=== PATIENT | male | born 1975 | race American Indian/Alaskan Native ===

== ENCOUNTER 2018-06-07 18:09 | Emergency (ER) | payer BC, OTHER ==
[2018-06-07 18:17] VITALS: BP 133/85
[2018-06-07] MEDS ORDERED: NORCO 5/325 ONE (20:59)
[2018-06-07] MEDS ORDERED: BOOSTRIX IM ONE ×2 (21:00→21:02)
[2018-06-07] MEDS ORDERED: NORCO 5/325 PO ONE (21:02)
--- NOTE | 2018-06-07 22:10 | Emergency Department Report ---
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 denies: loss of feeling/numbness, suspect foreign body present, unable to move injured part, weakness followed by dizziness, nausea/vomiting, fever - Related Data Previous Rx's Medication Instructions Recorded Last Taken Type Azithromycin [Zithromax] 500 mg PO QDAY #3 tablet 08/26/13 Unknown Rx HYDROcodone/APAP 5-325 [Keene 1 each PO Q6HR PRN #20 tablet 08/26/13 Unknown Rx 5/325 mg] Cephalexin [Keflex] 500 mg PO Q8HR #30 cap 06/07/18 Unknown Rx traMADol [Ultram] 50 mg PO Q8HR PRN #12 tablet 06/07/18 Unknown Rx Allergies Allergy/AdvReac Type Severity Reaction Status Date / Time No Known Allergies Allergy Verified 06/07/18 18:15 ED Review of Systems ROS: Stated complaint: FINGER INJURY Other details as noted in HPI Constitutional: denies: chills, fever Eyes: denies: eye pain, eye discharge, vision change ENT: denies: ear pain, throat pain Respiratory: denies: cough, shortness of breath, wheezing Cardiovascular: denies: chest pain, palpitations Endocrine: no symptoms reported Gastrointestinal: denies: abdominal pain, nausea, diarrhea Genitourinary: denies: urgency, dysuria Musculoskeletal: denies: back pain, joint swelling, arthralgia Skin: other (left middl finger laceration ) Neurological: denies: headache, weakness, paresthesias Psychiatric: denies: anxiety, depression Hematological/Lymphatic: denies: easy bleeding, easy bruising ED Past Medical Hx - Past Medical History Previous Medical History?: No - Surgical History Past Surgical History?: No - Social History Smoking Status: Never Smoker Substance Use Type: Alcohol, Marijuana - Medications Home Medications: Home Medications Medication Instructions Recorded Confirmed Last Taken Type Azithromycin [Zithromax] 500 mg PO QDAY #3 tablet 08/26/13 Unknown Rx HYDROcodone/APAP 5-325 [Keene 1 each PO Q6HR PRN #20 tablet 08/26/13 Unknown Rx 5/325 mg] Cephalexin [Keflex] 500 mg PO Q8HR #30 cap 06/07/18 Unknown Rx traMADol [Ultram] 50 mg PO Q8HR PRN #12 tablet 06/07/18 Unknown Rx ED Physical Exam - General Limitations: No Limitations General appearance: alert, in no apparent distress - Head Head exam: Present: atraumatic, normocephalic - Eye Eye exam: Present: normal appearance - ENT ENT exam: Present: mucous membranes moist - Neck Neck exam: Present: normal inspection - Respiratory Respiratory exam: Present: normal lung sounds bilaterally. Absent: respiratory distress - Cardiovascular Cardiovascular Exam: Present: regular rate, normal rhythm. Absent: systolic murmur, diastolic murmur, rubs, gallop - GI/Abdominal GI/Abdominal exam: Present: soft, normal bowel sounds - Rectal Rectal exam: Present: deferred - Extremities Exam Extremities exam: Present: normal inspection, full ROM, tenderness (left middle finger laceration ), normal capillary refill. Absent: pedal edema, joint swelling, calf tenderness - Expanded Upper Extremity Exam Left Hand Wrist exam: Present: normal inspection, full ROM, tenderness, laceration. Absent: swelling, abrasion, ecchymosis, deformity, crepidus, dislocation, erythema, amputation, nail avulsion, subungual hematoma Neuro motor exam: Present: wrist extension intact, thumb opposition intact, thumb IP flexion intact, thumb adduction intact, fingers 2-5 abduction intact Neurosensory exam: Present: 2-point discrimination, radial nerve intact, ulnar nerve intact, median nerve intact Vascular: Present: normal capillary refill, radial pulse, brachial pulse, ulnar pulse. Absent: vascular compromise, Pallo, pulse deficit radial art, pulse deficit ulnar art, pulse deficit brachial art - Back Exam Back exam: Present: normal inspection, full ROM - Neurological Exam Neurological exam: Present: alert, oriented X3, CN II-XII intact, normal gait, reflexes normal - Psychiatric Psychiatric exam: Present: normal affect, normal mood - Skin Skin exam: Present: warm, dry, intact, normal color. Absent: rash, cyanosis, diaphoretic, erythema, urticaria, vesicles, petechiae, pallor, abrasion, ecchymosis ED Course Vital Signs 06/07/18 18:15 Temperature 97.6 F Pulse Rate 75 Respiratory 20 Rate Blood Pressure 133/85 O2 Sat by Pulse 97 Oximetry - Laceration /Wound Repair Left Palm Hand Wound Location: upper extremity Wound's Depth, Shape: superficial, irregular Wound Explored: clean Betadine Prep?: Yes Anesthesia: 1% Lidocaine Volume Anesthetic (ccs): 3 Wound Debrided: minimal Wound Repaired With: sutures Suture Size/Type: 4:0, 3:0, proline Number of Sutures: 6 Layer Closure?: No Sterile Dressing Applied?: Yes Progress: laceratin left middle finger muñoz side at first joint no nerve tendon or muscle involvment rom intact to direct confrontation flexion and extension bleed stopped, anesthesia with 1% lidocaine plan, irrigated wtih 60 cc sterile saline no foreignbody noted on xray of exploration, wound closed with 4.0 prolene x 6 sutures all bleeding controlled pt tolerated procedure with minimal distress given wound care instructions pt verbalized agreement and understanding of same sterile dressing applied pt tolerated procedure with minimal distress. ED Medical Decision Making - Medical Decision Making lacartion left middle finger, see procedure note for closure, pt given wound care instructions, verbalized agreement and understanding of same, pt for dc to home in stable condition at this time, there was no nerve tendon or muscle involvement. Critical care attestation.: If time is entered above; I have spent that time in minutes in the direct care of this critically ill patient, excluding procedure time. ED Disposition Clinical Impression: Finger laceration Qualifiers: Encounter type: sequela Finger: middle finger Damage to nail status: without damage Foreign body presence: without foreign body Laterality: left Qualified Code(s): S61.213S - Laceration without foreign body of left middle finger without damage to nail, sequela Disposition: DC-01 TO HOME OR SELFCARE Is pt being admited?: No Does the pt Need Aspirin: No Condition: Good Instructions: Finger Laceration (ED), Suture Care (ED) Prescriptions: Cephalexin [Keflex] 500 mg PO Q8HR #30 cap traMADol [Ultram] 50 mg PO Q8HR PRN #12 tablet PRN Reason: Pain Referrals: MEGAN CHEUNG MD [Primary Care Provider] - 3-5 Days Forms: Work/School Release Form(ED) Time of Disposition: 22:21
--- NOTE | 2018-06-07 23:10 | XRay Report ---
FINAL REPORT EXAM: XR HAND 3+V LT HISTORY: laceration TECHNIQUE: Three views left hand Comparison: None FINDINGS: Normal bony mineralization. No fracture or dislocation identified. There is soft tissue laceration along the radial aspect of the 3rd digit at the level of the proximal phalanx containing punctate radiopaque foreign bodies. These are all are less than 1 millimeter. This is a palmar injury. There is no fracture or underlying bony injury. IMPRESSION: Soft tissue laceration left 3rd digit palmar and radial aspect with small punctate less than 1 millimeter foci of radiodensity. No underlying bony disruption.
== END 2018-06-07 22:30 | disposition home or self-care (01) ==
LOC: ED 18:09
DX: S61.213A Laceration without foreign body of left middle finger without damage to nail, initial encounter (principal); W26.8XXA Contact with other sharp object(s), not elsewhere classified, initial encounter; Y93.89 Activity, other specified; Y92.89 Other specified places as the place of occurrence of the external cause; Y99.8 Other external cause status
CPT/HCPCS: 90471; 90715